=== PATIENT | female | born 1990 | race Caucasian/White ===

== ENCOUNTER 2018-04-04 11:45 | Inpatient (IN) | payer MEDICAID ==
[2018-04-04] MEDS ORDERED: Sodium Chloride 0.9% 10 ML Syringe FLUSH PRN (19:08)
[2018-04-04] MEDS ORDERED: Oxytocin/Lactated Ringers 10 UNIT/1,000 ML BAG IV SCH (19:15)
[2018-04-04] MEDS: Lactated Ringers 1,000 ML IV SCH ×2 (19:45→23:56)
[2018-04-04] MEDS ORDERED: fentaNYL 100 MCG/2 ML SDV EPIDUR PRN (23:47)
[2018-04-04] MEDS ORDERED: diphenhydrAMINE 50 MG/ML SDV IVPUSH PRN (23:47)
[2018-04-04] MEDS ORDERED: ePHEDrine 50 MG/ML SDV IVPUSH PRN (23:47)
[2018-04-05] MEDS: Bupivacaine/fentaNYL/NS 100 ML Bag EPIDUR SCH ×2 (00:19→09:30)
--- NOTE | 2018-04-05 00:22 | PCM.PREANE ---
Preanesthetic Assessment - Anesthesia/Transfusion/Family Hx Anesthesia History: Prior Anesthesia Without Reaction Family History of Anesthesia Reaction: No Transfusion History: No Prior Transfusion(s) - Review of Systems General: No Symptoms Pulmonary: No Symptoms Cardiovascular: No Symptoms Gastrointestinal: No Symptoms Neurological: No Symptoms Other: Reports: None - Physical Assessment Pulse: 105 Respiratory Rate: 18 Blood Pressure: 114/67 Vital Signs: Last Vital Signs Temp 97.9 F 04/04/18 19:05 Pulse 105 H 04/04/18 18:07 Resp 18 04/04/18 19:05 BP 114/67 04/04/18 18:07 Pulse Ox Height: 5 ft 7 in Weight: 100.698 kg ASA Class: 2 Mental Status: Alert & Oriented x3 Airway Class: Mallampati = 1 Dentition: Reports: Normal Dentition Thyro-Mental Finger Breadths: 3 Mouth Opening Finger Breadths: 3 ROM/Head Extension: Full Lungs: Clear to Auscultation, Normal Respiratory Effort Cardiovascular: Regular Rate, Regular Rhythm - Lab Values: Laboratory Last Values WBC 18.67 K/mm3 (3.98-10.04) H 04/04/18 19:25 RBC 4.03 M/mm3 (3.98-5.22) 04/04/18 19:25 Hgb 12.6 gm/L (11.2-15.7) 04/04/18 19:25 Hct 37.4 % (34.1-44.9) 04/04/18 19:25 MCV 92.8 fl (79.4-94.8) 04/04/18 19:25 MCH 31.3 pg (25.6-32.2) 04/04/18 19:25 MCHC 33.7 g/dl (32.2-35.5) 04/04/18 19:25 RDW Std Deviation 45.7 fL (36.4-46.3) 04/04/18 19:25 Plt Count 279 K/mm3 (182-369) 04/04/18 19:25 MPV 12.3 fl (9.4-12.3) 04/04/18 19:25 Neut % (Auto) 80.2 % (34.0-71.1) H 04/04/18 19:25 Lymph % (Auto) 12.2 % (19.3-51.7) L 04/04/18 19:25 Parke % (Auto) 4.8 % (4.7-12.5) 04/04/18 19:25 Eos % (Auto) 1.6 (0.7-5.8) 04/04/18 19:25 Baso % (Auto) 0.2 % (0.1-1.2) 04/04/18 19:25 Neut # (Auto) 15.00 K/mm3 (1.56-6.13) H 04/04/18 19:25 Lymph # (Auto) 2.27 K/mm3 (1.18-3.74) 04/04/18 19:25 Parke # (Auto) 0.90 K/mm3 (0.24-0.36) H 04/04/18 19:25 Eos # (Auto) 0.29 K/mm3 (0.04-0.36) 04/04/18 19:25 Baso # (Auto) 0.03 K/mm3 (0.01-0.08) 04/04/18 19:25 Manual Slide Review Abnormal smear 04/04/18 19:25 - Allergies Allergies/Adverse Reactions: Allergies Allergy/AdvReac Type Severity Reaction Status Date / Time latex Allergy Rash Verified 04/04/18 19:01 citrus Allergy Severe Blisters Uncoded 02/18/18 20:28 - Blood Blood Available: No - Acknowledgements Anesthesia Type Planned: Epidural Pt an Appropriate Candidate for the Planned Anesthesia: Yes Alternatives and Risks of Anesthesia Discussed w Pt/Guardian: Yes Pt/Guardian Understands and Agrees with Anesthesia Plan: Yes PreAnesthesia Questionnaire Respiratory History: Reports: Asthma Gastrointestinal History: Reports: GERD, Other (See Below) Other Gastrointestinal History: enlarged colon 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: Psychiatric History: Reports: Anxiety, Depression, Suicide Attempt - Past Surgical History HEENT Surgical History: Reports: Oral Surgery GI Surgical History: Reports: None - History Comment History Comment: no meds - SUBSTANCE USE Smoking Status *Q: Former Smoker (quit 1 month agp) Tobacco Use Within Last Twelve Months: Cigarettes Second Hand Smoke Exposure: Yes Days Per Week of Alcohol Use: 0 Recreational Drug Use History: No - CURRENT (IN HOUSE) MEDS Current Meds: Current Medications Diphenhydramine HCl (Benadryl) 25 mg IVPUSH Q6H PRN PRN Reason: pruritis Ephedrine Sulfate (Ephedrine Sulfate) 5 mg IVPUSH ASDIRECTED PRN PRN Reason: Hypotension Fentanyl (Sublimaze) 100 mcg EPIDUR Q3H PRN PRN Reason: Pain Last Admin: 04/05/18 00:19 Dose: 100 mcg Fentanyl/Bupivacaine HCl (Fentanyl/Bupivacaine/Ns 2 Mcg-0.125% 100 Ml) 100 ml EPIDUR ASDIRECTED GRETTA Last Admin: 04/05/18 00:19 Dose: 100 ml Lactated Ringer's (Ringers, Lactated) 1,000 mls @ 100 mls/hr IV ASDIRECTED GRETTA Oxytocin/Lactated Ringer's (Pitocin In Lr 10 Units/1,000 Ml) 10 unit in 1,000 mls @ 12 mls/hr IV TITRATE GRETTA; Protocol Sodium Chloride (Saline Flush) 10 ml FLUSH ASDIRECTED PRN PRN Reason: Keep Vein Open
[2018-04-05] MEDS: Lactated Ringers 1,000 ML IV SCH ×2 (03:26→07:20)
[2018-04-05] MEDS ORDERED: Sodium Chloride 0.9% 1,000 ML ONE (06:11)
[2018-04-05] MEDS ORDERED: Sodium Chloride 0.9% 1,000 ML IRR SCH (06:15)
--- NOTE | 2018-04-05 07:00 | HP ---
DATE OF ADMISSION: 04/04/2018 ADMISSION DIAGNOSIS: A 40 and 3/7th week intrauterine , elective induction of labor. HISTORY OF PRESENT ILLNESS: Shahrzad is a 27-year-old 1, para 0, white female, admitted for elective induction of labor at 40 and 3/7 weeks gestational age. ALLYSON is 04/01/2018 as based upon a certain last menstrual period starting 06/25/2017 and supported by an ultrasound done 11/15/2017 at 21 weeks. On last evaluation in clinic, the patient's cervical evaluation showed 2+ cm dilation, 80% effacement, soft, -2 station, and mid position. She at this time is 3 cm, 80% effaced, 0 station, anterior and soft. She has been started on Pitocin and was saroj approximately every 4 minutes, mild in nature, lasting 45 to 60 seconds. Artificial rupture of membranes is undertaken with resultant clear amniotic fluid. heart tones are reassuring. 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 The patient had menarche at age 13, cycles q.30 days. Final LMP onset 06/25/2017, not using any controls at the time of conception. The patient has monthly periods. Her 1st visit occurred on 11/18/2017 and was considered a risk factor of late care. She was seen fairly regularly after that time. Her vital signs remained stable throughout the course and her fundal height growth was appropriate. Weight gain was from her pregravid weight of 203 pounds up to a weight of 218 pounds. The patient isgroup B strep negative. She had some hemorrhoid problems during the . She has a history of PCOS. She had a normal 1 hour glucose tolerance test. Some sleep apnea is noted. Laboratory testing inpregnancy shows a blood type of B positive with negative antibody screen. First hemoglobin was 12.6 g/dL and platelets were 282,000. She is rubella immune. RPR is nonreactive. Hepatitis B and HIV assays are both negative. Gonorrhea and chlamydia are both negative. One-hour GTT was normal at 113. Second trimester hemoglobin was 12.6 g/dL and platelets were 256,000. Repeat CBC on 02/21/2018 in 3rd trimester showed a hemoglobin of 12.7 g/dL and platelets 288,000. Her group B strep screen was negative. ALLERGIES: Latex gloves. CURRENT MEDICATIONS: 1. Analpram HC 2.5-1% rectal cream up to 4 times a day p.r.n. for hemorrhoids. 2. Ventolin inhaler use 1 or 2 puffs every 4 to 6 hours p.r.n. for asthma. 3. vitamins daily. 4. DHA caps 1 daily. PAST MEDICAL HISTORY: 1. Asthma. 2. Seasonal allergies. 3. History of depression with suicide attempts. PAST SURGICAL HISTORY: Amite teeth extraction. FAMILY HISTORY: Mother is alive and well as is father. Two brothers, alive and well. One sister, with some health history, but is not known to the patient. Maternal grandmother is secondary to an RI. Maternal grandfather secondary to cause unknown. Paternal grandfather secondary to a motor vehicle accident. Paternal grandfather - cause unknown. No , anesthesia, bleeding, or blood clotting problems noted in the family. SOCIAL HISTORY: The patient is single, lives in [place], significant other is Sina Walker. She does not use any significant amounts of alcohol or drugs, but has a history of smoking in . REVIEW OF SYSTEMS: GENERAL: The patient has no complaints, reports good activity. SKIN: Negative. CARDIOVASCULAR: No chest pain or exercise intolerance. RESPIRATORY: No infectious symptoms or shortness of breath. BREASTS: Increase in size and tenderness secondary to , otherwise unremarkable. The patient undecided about breast-feeding. GI: Negative. : Increased fundal height consistent with gestational age. MUSCULOSKELETAL: Negative with the exception of occasional edema. NEUROLOGICAL: Negative. PHYSICAL EXAMINATION: GENERAL: The patient is a well-developed, well-nourished, pleasant female, stated age, in no acute distress. VITAL SIGNS: Stable. On last evaluation in clinic, her weight was 218.6 pounds up from 203 pounds. Blood pressure was 105/66, heart rate was 136. Body mass index at the time of conception was 25.8. SKIN: Warm and dry without lesions. HEENT: Within normal limits. NECK: Within normal limits. BACK: Within normal limits. LUNGS: Clear with good breath sounds in all lung santana. CARDIOVASCULAR: Shows regular rate and rhythm without murmurs. BREASTS: Deferred at this time, having done early in the and found to be normal. ABDOMEN: Protuberant with with fundal height on last evaluation in the clinic at 38+ cm. Baby in vertex presentation. Cervix as defined above. EXTREMITIES: Grossly within normal limits. NEUROLOGICAL: Grossly within normal limits. ASSESSMENT: 1. Term intrauterine at 40 and 3/7 weeks gestational age, admitted for elective induction of labor. 2. Minimal risk factors for the other than a late care. 3. Rubella negative. 4. Desires natural labor. 5. Group B strep screen negative. 6. Undecided about nursing. PLAN: 1. Pitocin/artificial rupture of membranes, induction of labor. These are started after discussions held with the patient concerning risks and benefits. 2. CBC. 3. IV fluid and IV Pitocin. 4. Group B strep screen is negative; therefore, no antibiotic prophylaxis was necessary. 5. Rubella titer is negative. No MMR indicated. MMODAL /[id number]
[2018-04-05] MEDS ORDERED: Simethicone 80 MG Tab.Chew PO PRN (07:14)
[2018-04-05] MEDS ORDERED: Citric Acid/Sodium Citrate Solution 30 ML Cup PO ONE (10:55)
[2018-04-05] MEDS ORDERED: ceFAZolin 2 GM in Premix Bag 1 BAG IV ONE (10:55)
[2018-04-05] MEDS ORDERED: Metoclopramide 10 MG/2 ML SDV IVPUSH ONE ×2 (10:55)
[2018-04-05] MEDS ORDERED: Bupivacaine 0.5% 30 ML SDV ONE (10:57)
[2018-04-05] MEDS ORDERED: Metoclopramide 10 MG/2 ML SDV ONE (10:59)
[2018-04-05] MEDS ORDERED: Citric Acid/Sodium Citrate Solution 30 ML Cup ONE (10:59)
--- NOTE | 2018-04-05 10:59 | PCM.SN ---
- Free Text/Narrative Note: Patient has been objectively evaluated with intrauterine pressure catheter and has made no progress since approximately 0600 hrs. today. She persists at 8 cm despite objectively evaluated adequate labor. Patient concerning the alternatives of care including a primary section. The procedure, risks , benefits, follow-up are discussed with her. She appears understand, wishes to proceed and will sign a consent. No change in her status occurred since admission. Assessment: 40-4/7 week intrauterine , failure to progress secondary to cephalopelvic disproportion Plan: 1. Primary lower uterine segment transverse section defensive skin incision under epidural anesthesia. Procedure, risks, benefits, alternatives of care and follow-up were discussed in detail patient. She appears understand and wish to proceed F2. DVT prophylaxis with SCDs 3. Infection prophylaxis with Ancef 2 g IV preop 4. Routine preoperative labs to be performed.
[2018-04-05] MEDS ORDERED: Phenylephrine 1% 10 MG/ML SDV ONE (11:00)
[2018-04-05] MEDS ORDERED: Lactated Ringers 2,000 ML ONE (11:00)
[2018-04-05] MEDS ORDERED: Ketorolac 30 MG/ML SDV ONE (11:00)
[2018-04-05] MEDS ORDERED: Lidocaine 2% with EPINEPHrine 1:200,000 20 ML SDV ONE (11:00)
[2018-04-05] MEDS ORDERED: ceFAZolin 1 GM Vial ONE (11:00)
[2018-04-05] MEDS ORDERED: Ondansetron 4 MG/2 ML SDV ONE (11:00)
[2018-04-05] MEDS ORDERED: Morphine PF 10 MG/10 ML SDV ONE (11:00)
[2018-04-05] MEDS ORDERED: fentaNYL 100 MCG/2 ML SDV ONE (11:00)
[2018-04-05] MEDS ORDERED: Oxytocin 10 Units/1 ML SDV ONE (11:00)
[2018-04-05] MEDS ORDERED: diphenhydrAMINE 50 MG/ML SDV IVPUSH PRN ×2 (11:43→13:02)
[2018-04-05] MEDS ORDERED: Ondansetron 4 MG/2 ML SDV IVPUSH PRN (11:43)
[2018-04-05] MEDS ORDERED: ePHEDrine 50 MG/ML SDV IVPUSH PRN ×2 (11:43→13:02)
[2018-04-05] MEDS ORDERED: fentaNYL 100 MCG/2 ML SDV IVPUSH PRN (11:43)
[2018-04-05] MEDS ORDERED: Phenylephrine 1 MG in Sodium Chloride 0.9% 10 ML IV SCH (11:45)
[2018-04-05] MEDS ORDERED: Bupivacaine 0.25% 10 ML SDV ONE (12:00)
[2018-04-05] MEDS ORDERED: HYDROmorphone 0.5 MG/0.5 ML Syringe IVPUSH ONE (12:00)
--- NOTE | 2018-04-05 12:22 | PCM.POSTAN ---
POST ANESTHESIA ASSESSMENT - MENTAL STATUS Mental Status: Alert - VITAL SIGNS Pulse Rate: 90 SaO2: 95 Resp Rate: 14 Blood Pressure: 105/55 Temperature: 37.1 C - RESPIRATORY Respiratory Status: Respiratory Rate WNL, Airway Patent, O2 Saturation Stable - CARDIOVASCULAR CV Status: Pulse Rate WNL, Blood Pressure Stable - GASTROINTESTINAL GI Status: No Symptoms - POST OP HYDRATION Hydration Status: Adequate & Stable
[2018-04-05] MEDS ORDERED: Docusate Sodium 100 MG Cap PO PRN (13:02)
[2018-04-05] MEDS ORDERED: Ibuprofen 800 MG Tab PO SCH (13:02)
[2018-04-05] MEDS ORDERED: Dextrose 5%-Lactated Ringers 1,000 ML IV SCH (13:02)
[2018-04-05] MEDS ORDERED: Naloxone 0.4 MG/ML SDV IVPUSH PRN (13:02)
[2018-04-05] MEDS ORDERED: Lanolin 100% Cream 7 GM Tube TOP PRN (13:02)
[2018-04-05] MEDS: Ondansetron 4 MG/2 ML SDV IV PRN ×2 (16:03→20:31)
[2018-04-05] MEDS: Ibuprofen 800 MG Tab PO SCH (18:53)
[2018-04-05] MEDS: Simethicone 80 MG Tab.Chew PO SCH ×2 (18:54→18:55)
[2018-04-06] MEDS: Simethicone 80 MG Tab.Chew PO SCH ×5 (05:38→21:51)
--- NOTE | 2018-04-06 06:05 | PCM.OPNOTE ---
- General Post-Op/Procedure Note Date of Surgery/Procedure: 04/05/18 Operative Procedure(s): Primary lower uterine segment transverse section through Pfannenstiel skin incision Findings: Baby is in a vertex presentation, amniotic fluid was clear. Uterus tubes and ovaries otherwise looked like normal term . Etiology of failure to descend unclear. Most probably secondary to contracted pelvis. Nuchal cord- loosely 1 noted. Pre Op Diagnosis: 40-4/7 week intrauterine , failure to descend Post-Op Diagnosis: Same With delivery of a viable female infant with Apgars of 8 and 9, a weight of 3100 g (6 pounds 13.3 ounces), a length of 20.5 inches at 1145 hrs. on 04/05/2018 Anesthesia Technique: Epidural, Local Other Anesthesia Type: Marcaine 0.5%20 mL local Primary Surgeon: Griffin Jacome Secondary Surgeon: Jovanny Ford Anesthesia Provider: Nora Shepherd Reason Resident Care Associate Was Necessary: Retraction, assistance, patient safety and quality of care Role of Resident Care Associate: Retraction, assistance Fluid Replacement, Intraop: 1,100 Output, Urine Amount: 150 EBL in mLs: 500 Drain/Tube Comments:: Indwelling bladder catheter Complications: None Condition: Good Free Text/Narrative:: Intake & Output 04/05/18 04/05/18 04/06/18 14:59 22:59 06:59 Intake Total 220 240 Output Total 321 153 8976 Balance -30 -360 -1300 Surgery duration: 25 minutes Procedure: Patient was transferred to the room. Epidural having already been placed with bolster to anesthetic effect. After confirmation of adequate anesthesia patient was placed in a supine position with a wedge under her right side to facilitate left lateral positioning. The patient was prepped and draped in usual fashion. The Jaquez indwelling bladder catheter was already placed . The anesthetic was checked and found to be adequate. 20 mL of Marcaine 0.5% was injected locally in the Pfannenstiel incision site. The Pfannenstiel skin incision was then made carried down to skin subcutaneous and fascial layers. The fascia was then undermined superiorly and inferiorly to allow for adequate operating room the recti muscles midline and preperitoneal fat was bluntly dissected. Peritoneal cavity was entered longitudinally. The vesicouterine peritoneum was then incised transversely and bladder flap was developed. Myometrium was incised transversely to the level of the amniotic sac. This incision was extended bilaterally in a blunt fashion. The amniotic sac was then ruptured resulting in clear amniotic fluid. A hand is placed in the lower uterine segment and the baby's head was brought forth through the incision. The baby was completely delivered using fundal pressure in a routine fashion. The nose and mouth were bulb suctioned. Baby's cord was clamped x2 cut and baby was handed off to attending piping blocker Dr Genao. Placenta was expressed after cord blood was obtained. Uterus was then exteriorized to allow for easier closure. The cervix was assessed and found to be dilated adequately to allow egress of blood. The uterus was closed in 2 layers. The first layer a running locked suture of 0 Monocryl, the second layer a running locked vertical mattress suture of 0 Monocryl. Ksrlaq-cm-ehbji suture was placed at the mid incision area to control 1 bleeder. Hemostasis confirmed at this time. Sponge instrument needle counts are correct. The uterus was returned to the abdominal cavity and lateral gutters were cleared of blood. Once again sponge needle counts are correct. The anterior abdominal wall was closed with a #1 PDS suture from angle to angle. The subcutaneous area was found to be free of any bleeders. interrupted sutures of 3-0 Monocryl were used to reapproximate the subcutaneous layer.Skin was closed with a running subcuticular stitch of 3-0 Monocryl in a vertical mattress suture fashion using a Kurtis needle. Prineo mesh /glue was then applied to further approximate the incision. It should be noted that patient received 2 g of Ancef preoperatively for infection prophylaxis and had Pitocin infused after delivery of the placenta to facilitate uterine contraction. She also had sequential compression stockings in place for DVT prophylaxis. Patient was discharged from the operating room in satisfactory condition.
[2018-04-06] MEDS: Ibuprofen 800 MG Tab PO SCH ×3 (06:34→17:28)
[2018-04-06] MEDS: Acetaminophen/oxyCODONE 325-5 MG Tab PO PRN ×3 (08:22→22:30)
[2018-04-06] MEDS: Prenatal Multivitamin with Calcium/Folic Acid/Iron Tab PO SCH (08:22)
--- NOTE | 2018-04-06 09:36 | PCM48HPAN ---
Post Anesthesia Note - EVALUATION WITHIN 48HRS OF ANESTHETIC Vital Signs in Normal Range: Yes Patient Participated in Evaluation: Yes Respiratory Function Stable: Yes Airway Patent: Yes Cardiovascular Function Stable: Yes Hydration Status Stable: Yes Pain Control Satisfactory: Yes Nausea and Vomiting Control Satisfactory: Yes Mental Status Recovered: Yes - COMMENTS/OBSERVATIONS Free Text/Narrative:: Pt denies any anesthesia complications
--- NOTE | 2018-04-07 00:18 | PCM.SN ---
- Free Text/Narrative Note: note: Patient evaluated earlier on 04/06/2018 findings as follows: Patient is doing well in the period. Minimal lochia, voiding well, ambulated without problems. Nursing without concerns. Patient is afebrile, vital signs are stable Abdomen is flat, soft, uterus is below the umbilicus and is firm and nontender. Legs are nontender. White count is mildly increased at 18,000 but patient shows no signs of infection. Assessment: recovery going well. Monitor for any signs of infection. Plan: Routine care. Patient be discharged home within the next 24- 48 hours.
[2018-04-07] MEDS: Ibuprofen 800 MG Tab PO SCH ×2 (03:37→09:19)
[2018-04-07] MEDS: Acetaminophen/oxyCODONE 325-5 MG Tab PO PRN (04:39)
[2018-04-07] MEDS: Prenatal Multivitamin with Calcium/Folic Acid/Iron Tab PO SCH (09:18)
[2018-04-07] MEDS: Simethicone 80 MG Tab.Chew PO SCH (09:19)
--- NOTE | 2018-04-07 10:27 | PCM.DCSUM1 ---
Discharge Summary - Hospital Course Free Text/Narrative:: Shahrzad is a 27-year-old 1 now para 1001 white female who was admitted for elective induction of labor at 40+ weeks gestational age. Progressed to approximately 8 cm dilation and then failed to progress beyond that. She was taken for primary section on 04/05/2018. She has done well since that time. She delivered a viable, sanchez, female infant with Apgars of 8 and 9, length of 20 inches and a weight of 6 pounds 13.3 ounces. She is breast- feeding. she has done very well. She has had a routine recovery. Hemoglobin has returned within normal limits for the postoperative period. She is desiring discharge home. - Discharge Data Discharge Date: 04/07/18 Discharge Disposition: Home, Self-Care 01 Condition: Good - Patient Summary/Data Operative Procedure(s) Performed: Primary lower uterine segment transverse section through Pfannenstiel skin incision - Patient Instructions Diet: Regular Diet as Tolerated (Nursing diet with increase calories calcium was recommended) Activity: As Tolerated (No intercourse or tampons until seen back, no lifting greater than 15 pounds or driving a car 1 week. No baths 1 week) Driving: Do Not Drive Wound/Incision Care: Keep Operative Site/Wound Site Clean and Dry Notify Provider of: Fever, Increased Pain, Swelling and Redness, Drainage, Nausea and/or Vomiting - Discharge Plan Home Medications: Home Meds Acetaminophen/oxyCODONE [Percocet 325-5 MG] 2 tab PO Q4H PRN tablet 04/07/18 [ Rx] Ibuprofen [Motrin] 800 mg PO Q8H tablet 04/07/18 [Rx] Vit with Ca/FA/Iron [ Plus Iron] 1 each PO DAILY tablet [Rx] Patient Handouts: Care After Delivery Referrals: Griffin Jacome MD [Physician] - (Return to [facility] weeks.) - Discharge Summary/Plan Comment DC Time >30 min.: No Discharge Summary/Plan Comment: Discharge instructions: 1. Discharge home 2. Diet, activity and follow-up discussed with patient. Recommend nursing diet with increased calories and calcium. 3. Precautions given concern increased pain, bleeding, temperature, signs/ symptoms of DVT/PE. 4. Medications per home medication was printed, discussed with and given to the patient. 5. Return to clinic-Dr. Jacome-[facility] in 2 weeks. Diagnosis: Term -delivered Condition: Good - Patient Data Vitals - Most Recent: Last Vital Signs Temp 36.9 C 04/07/18 03:00 Pulse 73 04/07/18 03:00 Resp 16 04/07/18 03:00 BP 130/81 04/07/18 03:00 Pulse Ox 98 04/07/18 03:00 Weight - Most Recent: 100.698 kg I&O - Last 24 hours: Intake & Output 04/06/18 04/07/18 04/07/18 22:59 06:59 14:59 Intake Total 360 Balance 360 Med Orders - Current: Current Medications Diphenhydramine HCl (Benadryl) 25 mg IVPUSH Q6H PRN PRN Reason: pruritis Diphenhydramine HCl (Benadryl) 25 mg IVPUSH Q6H PRN PRN Reason: Itching or Nausea Docusate Sodium (Colace) 100 mg PO Q12H PRN PRN Reason: Constipation Emollient Ointment (Lansinoh Hpa) 0 gm TOP ASDIRECTED PRN PRN Reason: Sore Nipples Ephedrine Sulfate (Ephedrine Sulfate) 5 mg IVPUSH ASDIRECTED PRN PRN Reason: Hypotension Ephedrine Sulfate (Ephedrine Sulfate) 5 mg IVPUSH SEECOMMENT PRN PRN Reason: Other Fentanyl (Sublimaze) 50 mcg IVPUSH Q5M PRN PRN Reason: Pain Phenylephrine HCl 1 mg/ Sodium (Chloride) 10.1 mls @ 1 mls/sec IV TITRATE GRETTA; Protocol Ibuprofen (Motrin) 800 mg PO Q8H GRETTA Last Admin: 04/07/18 09:19 Dose: 800 mg Naloxone HCl (Narcan) 0.1 mg IVPUSH SEECOMMENT PRN PRN Reason: Respiratory Depression Ondansetron HCl (Zofran) 4 mg IVPUSH ONETIME PRN PRN Reason: Nausea/Vomiting Ondansetron HCl (Zofran) 4 mg IV Q4H PRN PRN Reason: Nausea/Vomiting Last Admin: 04/05/18 20:31 Dose: 4 mg Oxycodone/Acetaminophen (Percocet 325-5 Mg) 2 tab PO Q4H PRN PRN Reason: Pain (moderate 4-6) Last Admin: 04/07/18 04:39 Dose: 2 tab Prenat Multivit/[place]/Iron/Folic Ac ( Plus Iron) 1 each PO DAILY [facility] Last Admin: 04/07/18 09:18 Dose: 1 each Simethicone (Simethicone) 80 mg PO PCBED [facility] Last Admin: 04/07/18 09:19 Dose: 80 mg Discontinued Medications Bupivacaine HCl (Marcaine 0.5%) Confirm Administered Dose 30 ml .ROUTE .STK-MED ONE Stop: 04/05/18 10:58 Last Admin: 04/05/18 11:42 Dose: 20 ml Bupivacaine HCl (Sensorcaine-Mpf 0.25%) 10 ml .ROUTE .STK-MED ONE Stop: 04/05/18 12:01 Cefazolin Sodium (Ancef) Confirm Administered Dose 2 gm .ROUTE .STK-MED ONE Stop: 04/05/18 11:01 Citric Acid/Sodium Citrate (Bicitra Solution) 30 ml PO ONETIME ONE Stop: 04/05/18 10:56 Last Admin: 04/05/18 11:04 Dose: 30 ml Citric Acid/Sodium Citrate (Bicitra Solution) Confirm Administered Dose 30 ml .ROUTE .STK-MED ONE Stop: 04/05/18 11:00 Diphenhydramine HCl (Benadryl) 25 mg IVPUSH Q6H PRN PRN Reason: pruritis Ephedrine Sulfate (Ephedrine Sulfate) 5 mg IVPUSH ASDIRECTED PRN PRN Reason: Hypotension Fentanyl (Sublimaze) 100 mcg EPIDUR Q3H PRN PRN Reason: Pain Last Admin: 04/05/18 00:19 Dose: 100 mcg Fentanyl (Sublimaze) Confirm Administered Dose 100 mcg .ROUTE .STK-MED ONE Stop: 04/05/18 11:01 Fentanyl/Bupivacaine HCl (Fentanyl/Bupivacaine/Ns 2 Mcg-0.125% 100 Ml) 100 ml EPIDUR ASDIRECTED [facility] Last Admin: 04/05/18 09:30 Dose: 100 ml Hydromorphone HCl (Dilaudid) 0.5 mg IVPUSH ONETIME ONE Stop: 04/05/18 12:01 Lactated Ringer's (Ringers, Lactated) 1,000 mls @ 100 mls/hr IV ASDIRECTED GRETTA Last Admin: 04/05/18 07:20 Dose: 100 mls/hr Oxytocin/Lactated Ringer's (Pitocin In Lr 10 Units/1,000 Ml) 10 unit in 1,000 mls @ 12 mls/hr IV TITRATE GRETTA; Protocol Last Titration: 04/05/18 09:45 Dose: 6 munits/min, 36 mls/hr Sodium Chloride (Sodium Chloride 0.9%) 1,000 mls @ 100 mls/hr IRR ASDIRECTED GRETTA Sodium Chloride (Normal Saline) Confirm Administered Dose 1,000 mls @ as directed .ROUTE .STK-MED ONE Stop: 04/05/18 06:12 Last Admin: 04/05/18 06:19 Dose: 300 mls/hr Cefazolin Sodium/Dextrose 2 gm (/ Premix) 50 mls @ 100 mls/hr IV ONETIME ONE Stop: 04/05/18 11:24 Lactated Ringer's (Ringers, Lactated) Confirm Administered Dose 2,000 mls @ as directed .ROUTE .STK-MED ONE Stop: 04/05/18 11:01 Dextrose/Lactated Ringer's (Dextrose 5%-Lactated Ringers) 1,000 mls @ 125 mls/ hr IV ASDIRECTED [facility] Stop: 04/05/18 21:01 Last Admin: 04/05/18 14:10 Dose: 125 mls/hr Ibuprofen (Motrin) 800 mg PO Q8H [facility] Ketorolac Tromethamine (Toradol) Confirm Administered Dose 30 mg .ROUTE .STK- MED ONE Stop: 04/05/18 11:01 Lidocaine/Epinephrine (Xylocaine-Mpf 2%-Epi 1:200,000) Confirm Administered Dose 20 ml .ROUTE .STK-MED ONE Stop: 04/05/18 11:01 Metoclopramide HCl (Reglan) 10 mg IVPUSH ONETIME ONE Stop: 04/05/18 10:56 Last Admin: 04/05/18 11:04 Dose: 10 mg Metoclopramide HCl (Reglan) 10 mg IVPUSH ONETIME ONE Stop: 04/05/18 10:56 Metoclopramide HCl (Reglan) Confirm Administered Dose 10 mg .ROUTE .STK-MED ONE Stop: 04/05/18 11:00 Morphine Sulfate (Duramorph Pf) Confirm Administered Dose 10 mg .ROUTE .STK-MED ONE Stop: 04/05/18 11:01 Ondansetron HCl (Zofran) Confirm Administered Dose 4 mg .ROUTE .STK-MED ONE Stop: 04/05/18 11:01 Oxytocin (Pitocin) Confirm Administered Dose 10 unit .ROUTE .STK-MED ONE Stop: 04/05/18 11:01 Phenylephrine HCl (Yony-Synephrine) Confirm Administered Dose 10 mg .ROUTE .STK- MED ONE Stop: 04/05/18 11:01 Simethicone (Simethicone) 80 mg PO Q4H PRN PRN Reason: Heartburn Last Admin: 04/05/18 07:23 Dose: 80 mg Sodium Chloride (Saline Flush) 10 ml FLUSH ASDIRECTED PRN PRN Reason: Keep Vein Open
== END 2018-04-07 11:15 | disposition home or self-care (01) | DRG 765 ==
LOC: JD.OB 11:45 → OBSVTOIN 04-05 11:45 → JD.OB 04-05 11:46
PROVIDERS: ADMIT Obstetrics & Gynecology; ATTEND Obstetrics & Gynecology
PROC: 10D00Z1 Extraction of Products of Conception, Low, Open Approach (ICD-10-PCS; principal; 2018-04-05)
PROC: 10907ZC Drainage of Amniotic Fluid, Therapeutic from Products of Conception, Via Natural or Artificial Opening (ICD-10-PCS; 2018-04-05)
PROC: 3E033VJ Introduction of Other Hormone into Peripheral Vein, Percutaneous Approach (ICD-10-PCS; 2018-04-05)
PROC: 6A550ZT Pheresis of Cord Blood Stem Cells, Single (ICD-10-PCS; 2018-04-05)
PROC: 10H07YZ Insertion of Other Device into Products of Conception, Via Natural or Artificial Opening (ICD-10-PCS; 2018-04-05)
PROC: 00HU33Z Insertion of Infusion Device into Spinal Canal, Percutaneous Approach (ICD-10-PCS; 2018-04-05)
PROC: 3E0R3BZ Introduction of Anesthetic Agent into Spinal Canal, Percutaneous Approach (ICD-10-PCS; 2018-04-05)
DX: O48.0 Post-term pregnancy (principal); O99.354 Diseases of the nervous system complicating childbirth; Z37.0 Single live birth; Z3A.40 40 weeks gestation of pregnancy; O62.0 Primary inadequate contractions; O99.52 Diseases of the respiratory system complicating childbirth; J45.909 Unspecified asthma, uncomplicated; Z91.040 Latex allergy status; Z79.899 Other long term (current) drug therapy; E28.2 Polycystic ovarian syndrome; G47.30 Sleep apnea, unspecified; O99.284 Endocrine, nutritional and metabolic diseases complicating childbirth; Z87.891 Personal history of nicotine dependence; O69.81X0 Labor and delivery complicated by cord around neck, without compression, not applicable or unspecified; O32.4XX0 Maternal care for high head at term, not applicable or unspecified
CPT/HCPCS: 01967; 01968; 36415; 51702; 59025; 85025; 86850; 86900; 86901; A9270-GY; J0690; J1885; J2270; J2370; J2405; J2590; J2765; J3010; J7040; J7042; J7120

== ENCOUNTER 2018-07-02 12:24 | Emergency (ER) | payer MEDICAID ==
[2018-07-02] MEDS ORDERED: Ketorolac 60 MG/2 ML SDV IM ONE (13:22)
[2018-07-02] MEDS ORDERED: Orphenadrine 100 MG Tab.ER PO STA (13:22)
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
== END 2018-07-02 14:38 | disposition home or self-care (01) ==
LOC: JD.ED 12:24
DX: M62.830 Muscle spasm of back (principal); Z91.040 Latex allergy status; Z91.018 Allergy to other foods
CPT/HCPCS: 96372; 99283; A9270; J1885

== ENCOUNTER 2019-09-12 09:02 | Day surgery (SDC) | payer OTHER ==
[2019-09-12] MEDS ORDERED: Lidocaine 1%/Sod Bicarbonate in NS 8.4% 1 ML Syringe IDERM PRN (09:42)
[2019-09-12] MEDS ORDERED: Sodium Chloride 0.9% 10 ML Syringe FLUSH PRN (09:42)
--- NOTE | 2019-09-12 09:44 | PCM.PREANE ---
Preanesthetic Assessment - Anesthesia/Transfusion/Family Hx Anesthesia History: Prior Anesthesia Without Reaction Family History of Anesthesia Reaction: No Transfusion History: No Prior Transfusion(s) Intubation History: Unknown - Review of Systems General: No Symptoms Pulmonary: No Symptoms (History of CAROL, Asthma(exercise induced) Smoker: 1PPD times 5 years), Cough (dry air cough/PND) Cardiovascular: No Symptoms, Palpitations (anxiety) Gastrointestinal: No Symptoms (GERD-no symptoms) Neurological: No Symptoms (History of Spina Bifida) Other: Reports: None, Sinus Problem (seasonal allergies), Depression (History of suicide attempt), Anxiety - Physical Assessment NPO Status Date: 09/11/19 NPO Status Time: 18:00 Vital Signs: HR: 64 BP: 109/75 Resp: 16 Sat: 94% Temp: 97.3F Height: 1.7 m Weight: 101.151 kg ASA Class: 2 Mental Status: Alert & Oriented x3 Airway Class: Mallampati = 2 Dentition: Reports: Normal Dentition, Caries Thyro-Mental Finger Breadths: 3 Mouth Opening Finger Breadths: 3 ROM/Head Extension: Full Lungs: Clear to Auscultation, Normal Respiratory Effort Cardiovascular: Regular Rate, Regular Rhythm, No Murmurs - Lab Values: All labs reviewed and noted and within acceptable ranges to proceed with scheduled procedure. - Allergies Allergies/Adverse Reactions: Allergies Allergy/AdvReac Type Severity Reaction Status Date / Time latex Allergy Rash Verified 07/02/18 12:44 citrus Allergy Severe Blisters Uncoded 07/02/18 12:44 - Anesthesia Plan Pre-Op Medication Ordered: None - Acknowledgements Anesthesia Type Planned: General Anesthesia, MAC Pt an Appropriate Candidate for the Planned Anesthesia: Yes Alternatives and Risks of Anesthesia Discussed w Pt/Guardian: Yes Pt/Guardian Understands and Agrees with Anesthesia Plan: Yes PreAnesthesia Questionnaire - Past Health History Medical/Surgical History: Denies Medical/Surgical History Respiratory History: Reports: Asthma Gastrointestinal History: Reports: GERD, Other (See Below) Other Gastrointestinal History: enlarged colon 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
[2019-09-12] MEDS ORDERED: Lactated Ringers 1,000 ML IV SCH (09:45)
[2019-09-12] MEDS ORDERED: ceFAZolin 1 GM Vial ONE ×2 (10:25→10:28)
[2019-09-12] MEDS ORDERED: Ondansetron 4 MG/2 ML SDV ONE ×2 (10:25→10:28)
[2019-09-12] MEDS ORDERED: HYDROmorphone 0.5 MG/0.5 ML Syringe ONE (10:25)
[2019-09-12] MEDS ORDERED: Propofol 200 MG/20 ML SDV ONE ×2 (10:25→10:28)
[2019-09-12] MEDS ORDERED: Dexamethasone 4 MG/ML 5 ML MDV ONE (10:25)
[2019-09-12] MEDS ORDERED: Ketorolac 30 MG/ML SDV ONE (10:25)
[2019-09-12] MEDS ORDERED: Lactated Ringers 0 ML ONE (10:25)
[2019-09-12] MEDS ORDERED: Lidocaine 1% 2 ML ONE (10:25)
[2019-09-12] MEDS ORDERED: fentaNYL 100 MCG/2 ML SDV ONE (10:26)
[2019-09-12] MEDS ORDERED: Midazolam 1 MG/ML 2 ML SDV ONE ×2 (10:26→10:28)
[2019-09-12] MEDS ORDERED: Lactated Ringers 1,000 ML ONE (10:28)
[2019-09-12] MEDS ORDERED: Lidocaine 1% 4 ML ONE (10:28)
[2019-09-12] MEDS ORDERED: fentaNYL 250 MCG/5 ML SDV ONE (10:28)
[2019-09-12] MEDS ORDERED: Albuterol 0.083% 2.5 MG/3 ML Neb Soln ONE (10:42)
[2019-09-12] MEDS ORDERED: Neostigmine Methylsulfate 1 MG/ML 5 ML Syringe ONE (10:45)
[2019-09-12] MEDS ORDERED: Albuterol 0.083% 2.5 MG/3 ML Neb Soln NEB ONE (11:00)
[2019-09-12] MEDS ORDERED: Phenylephrine/Normal Saline 100 MCG/ML 10 ML Syringe ONE (11:01)
[2019-09-12] MEDS ORDERED: Ondansetron 4 MG/2 ML SDV IVPUSH PRN ×2 (11:09→11:17)
[2019-09-12] MEDS ORDERED: HYDROmorphone 0.5 MG/0.5 ML Syringe IVPUSH PRN (11:09)
[2019-09-12] MEDS ORDERED: Albuterol 0.083% 2.5 MG/3 ML Neb Soln NEB PRN (11:09)
[2019-09-12] MEDS ORDERED: diphenhydrAMINE 50 MG/ML SDV IVPUSH PRN (11:09)
[2019-09-12] MEDS ORDERED: fentaNYL 100 MCG/2 ML SDV IVPUSH PRN (11:09)
[2019-09-12] MEDS ORDERED: Phenylephrine 1 MG in Sodium Chloride 0.9% 10 ML IV SCH (11:15)
[2019-09-12] MEDS ORDERED: Non-Formulary Medication 1 Each (Fluticasone/Vilanterol 1 PUFF) INH PRN ×2 (11:16→13:00)
[2019-09-12] MEDS ORDERED: hydrOXYzine HCl 25 MG Tab PO PRN ×2 (11:16→13:00)
[2019-09-12] MEDS ORDERED: Albuterol 6.7 GM Inhaler INH PRN ×2 (11:16→12:59)
--- NOTE | 2019-09-12 11:22 | PCM.OPNOTE ---
- General Post-Op/Procedure Note Date of Surgery/Procedure: 09/12/19 Operative Procedure(s): dilation and suction curettage Findings: uterus sounded to 8 cm. It was mildly enlarged. Approximate 7-8 weeks' size. Adnexa within normal limits. Cervix minimally dilated Pre Op Diagnosis: incomplete spontaneous Post-Op Diagnosis: Same Anesthesia Technique: General LMA Primary Surgeon: Griffin Jacome Anesthesia Provider: Nora Shepherd Pathology: endometrial curettings consistent with products of conception Fluid Replacement, Intraop: 700 EBL in mLs: 5 Complications: None Condition: Good Free Text/Narrative:: surgery duration: 8 minutes The patient was taken to the operating room and placed in a supine position operating table. She received 2 g of Ancef preoperatively for infection prophylaxis and had sequential compression stockings in place for DVT prophylaxis. After adequate general LMA anesthesia patient was placed in a dorsal lithotomy position. A weighted speculum was placed in the vagina. Cervix is found to be dilated to approximately 5 mm. Uterus was sounded to approximately 8 cm. It was found to be anterior and mid position. An 7 mm suction curette was then introduced in routine fashion the endometrial cavity was evacuated. Moderate amount tissue was obtained. Findings consistent with products of conception. A medium size sharp curet was introduced and very careful fashion the endometrial cavity was curetted. It was be clear of any further tissue. The suction curet was then reintroduced and small and blood was removed. No further tissue was removed. This point the D&C was discontinued. The single-toothed tenaculum used to stabilize the anterior lip the cervix was removed. Blood was removed from the vagina with a stick sponge and the weighted speculum was removed from the vagina. The patient was awakened from LMA anesthesia. The patient was discharged from the OR in good condition
--- NOTE | 2019-09-12 11:33 | PCM.POSTAN ---
POST ANESTHESIA ASSESSMENT - MENTAL STATUS Mental Status: Alert - VITAL SIGNS Vital Signs: Last Vital Signs Temp 97.4f 09/12/19 1124 Pulse 80 09/12/19 1124 Resp 12 09/12/19 1124 BP 107/69 09/12/19 1124 Pulse Ox 95 09/12/19 1124 - RESPIRATORY Respiratory Status: Respiratory Rate WNL, Airway Patent, O2 Saturation Stable, Supplemental Oxygen - CARDIOVASCULAR CV Status: Pulse Rate WNL, Blood Pressure Stable - GASTROINTESTINAL GI Status: No Symptoms - POST OP HYDRATION Hydration Status: Adequate & Stable
--- NOTE | 2019-09-12 12:38 | PCM48HPAN ---
Post Anesthesia Note - EVALUATION WITHIN 48HRS OF ANESTHETIC Vital Signs in Normal Range: Yes Patient Participated in Evaluation: Yes Respiratory Function Stable: Yes Airway Patent: Yes Cardiovascular Function Stable: Yes Hydration Status Stable: Yes Pain Control Satisfactory: Yes Nausea and Vomiting Control Satisfactory: Yes Mental Status Recovered: Yes Vital Signs: Last Vital Signs Temp 36.2 C 09/12/19 12:00 Pulse 70 09/12/19 12:30 Resp 96 H 09/12/19 12:30 BP 100/59 L 09/12/19 12:30 Pulse Ox 94 L 09/12/19 12:00
[2019-09-12] MEDS ORDERED: Ketorolac 30 MG/ML SDV IVPUSH SCH (16:30)
== END 2019-09-12 12:46 | disposition home or self-care (01) ==
LOC: JD.SDS 09:02
PROVIDERS: ATTEND Obstetrics & Gynecology
DX: O03.4 Incomplete spontaneous abortion without complication (principal); K21.9 Gastro-esophageal reflux disease without esophagitis; J45.909 Unspecified asthma, uncomplicated; F17.210 Nicotine dependence, cigarettes, uncomplicated; Z91.040 Latex allergy status; Z91.018 Allergy to other foods; Z79.899 Other long term (current) drug therapy
CPT/HCPCS: 01965; 94640; J0690; J1100; J1170; J1885; J2001; J2250; J2370; J2405; J2704; J2710; J3010; J7120